=== PATIENT | male | born 1965 | race Caucasian/White ===

== ENCOUNTER 2017-05-03 18:21 | Emergency (ER) | payer OTHER ==
[~2017-05-03] VITALS: Ht 182.9 cm; Wt 104.5 kg
[2017-05-03] MEDS ORDERED: HYDR25TA PO (18:55)
[2017-05-03] MEDS ORDERED: LISI-660 PO (18:55)
[2017-05-03] MEDS: ACYCLOVIR 200 MG CAPSULE PO ONE (19:21)
[2017-05-03] MEDS: PredniSONE 20 MG TABLET PO ONE (19:21)
[2017-05-03] MEDS: LISINOPRIL 10 MG TABLET PO ONE (19:30)
[2017-05-03] MEDS: HYDROCHLOROTHIAZIDE 25 MG TABLET PO ONE (19:30)
[2017-05-03 19:35] VITALS: BP 180/88
== END 2017-05-03 19:46 | disposition home or self-care (01) ==
LOC: EMS 18:34
DX: G51.0 Bell's palsy (principal); I10 Essential (primary) hypertension
CPT/HCPCS: 99284; J7512

== ENCOUNTER 2017-07-29 20:57 | Inpatient (IN) | payer OTHER ==
[~2017-07-29] VITALS: Ht 182.9 cm; Wt 103.7 kg
[~2017-07-29 20:57] MED LIST: HYDR25TA PO; LISI-660 PO
[2017-07-29 21:40] LABS: BASOPHILS % (AUTO) 0.2 % (0.0-2.0); EOSINOPHILS % (AUTO) 0.8 % (1.0-6.0); HEMATOCRIT 48.6 % (41-53); HEMOGLOBIN 17.9 g/dL (13.5-17.5); LYMPHOCYTES # (AUTO) 2.7 K/uL (1.0-4.8); LYMPHOCYTES % (AUTO) 37.4 % (22.0-44.0); MEAN CORPUSCULAR HEMOGLOBIN 32.8 pg (26.0-34.0); MEAN CORPUSCULAR HGB CONC 36.8 G/dL (31.0-37.0); MEAN CORPUSCULAR VOLUME 89 fL (80-100); MONOCYTES # (AUTO) 0.5 K/uL (0.1-1.0); MONOCYTES % (AUTO) 7.5 % (2.0-9.0); NEUTROPHILS # (AUTO) 3.9 K/uL (1.8-7.7); NEUTROPHILS % (AUTO) 54.1 % (40.0-70.0); PLATELET COUNT (AUTO) 160 K/uL (150-450); RED BLOOD CELL COUNT(AUTO) 5.44 MIL/uL (4.50-5.90); RED CELL DISTRIBUTION WIDTH 12.8 % (11.5-14.5)
[2017-07-29 21:47] LABS: ALANINE AMINOTRANSFERASE 23 U/L (12-78); ALBUMIN 3.8 g/dL (3.4-5.0); ALKALINE PHOSPHATASE 55 U/L (46-116); ANION GAP 12 mmol/L (8-16); ASPARTATE AMINOTRANSFERASE 23 U/L (15-37); BILIRUBIN,TOTAL 0.7 mg/dL (0.1-1.0); CALCIUM, TOTAL 8.2 mg/dL (8.8-10.5); CARBON DIOXIDE 25 mmol/L (22-29); CHLORIDE 81 mmol/L (98-107); CREATININE 0.68 mg/dL (0.60-1.30); GLOMERULAR FILTR. RATE CALC > 60 mL/min (>60); GLUCOSE,RANDOM 148 mg/dL (70-110); POTASSIUM 3.4 mmol/L (3.5-5.1); UREA NITROGEN, BLOOD 7 mg/dL (7-18)
[2017-07-29 21:49] LABS: SODIUM SERUM 118 mmol/L (136-145)
[2017-07-29] MEDS ORDERED: SODIUM CHLORIDE 0.9% 1,000 ML IV SCH (22:30)
[2017-07-29] MEDS ORDERED: POTASSIUM CHL 10 MEQ/WATER 50 ML IV PRN (22:30)
[2017-07-29] MEDS ORDERED: ONDANSETRON HCL 4 MG/2 ML VIAL IVP PRN (22:30)
[2017-07-29] MEDS ORDERED: LORazepam 2 MG/ML VIAL IVP PRN (22:30)
[2017-07-29] MEDS ORDERED: MAGNESIUM HYDROXIDE SUSPENSION 30 ML UDCUP PO PRN (22:30)
[2017-07-29] MEDS ORDERED: MAGNESIUM SULFATE 2 GM in DEXTROSE 5%-WATER 50 ML IV PRN (22:30)
[2017-07-29] MEDS ORDERED: POTASSIUM CHLORIDE 20 MEQ ER TABLET PO PRN (22:30)
[2017-07-29] MEDS ORDERED: MAGNESIUM SULFATE 4 GM/WATER 100 ML IV PRN (22:30)
[2017-07-29] MEDS ORDERED: ACETAMINOPHEN 325 MG TABLET PO PRN (22:30)
[2017-07-29] MEDS ORDERED: MAGNESIUM OXIDE 400 MG TABLET PO PRN (22:30)
[2017-07-30 01:45] VITALS: BP 148/87
[2017-07-30 02:00] VITALS: BP 148/87
[2017-07-30] MEDS ORDERED: AmLODIPine BESYLATE 5 MG TABLET PO ONE (02:00)
[2017-07-30 05:09] VITALS: BP 147/77
[2017-07-30 07:21] LABS: ANION GAP 12 mmol/L (8-16); CARBON DIOXIDE 24 mmol/L (22-29); CHLORIDE 84 mmol/L (98-107); GLOMERULAR FILTR. RATE CALC > 60 mL/min (>60); GLUCOSE,RANDOM 112 mg/dL (70-110); POTASSIUM 3.9 mmol/L (3.5-5.1); UREA NITROGEN, BLOOD 7 mg/dL (7-18)
[2017-07-30 07:27] VITALS: BP 147/85
[2017-07-30 07:30] LABS: SODIUM SERUM 120 mmol/L (136-145)
[2017-07-30] MEDS ORDERED: PANTOPRAZOLE SODIUM 40 MG DR TABLET PO SCH (09:00)
== END 2017-07-30 11:50 | disposition left against medical advice (07) | DRG 425 ==
LOC: EMS 20:57 → 5S 22:28 → 5N 07-30 00:07 → 5S 07-30 00:54
PROVIDERS: ADMIT Internal Medicine; ATTEND Internal Medicine
DX: E87.1 Hypo-osmolality and hyponatremia (principal); S09.90XA Unspecified injury of head, initial encounter; I67.2 Cerebral atherosclerosis; I10 Essential (primary) hypertension; F10.129 Alcohol abuse with intoxication, unspecified; M48.00 Spinal stenosis, site unspecified; W18.30XA Fall on same level, unspecified, initial encounter; Z53.21 Procedure and treatment not carried out due to patient leaving prior to being seen by health care provider; Y90.8 Blood alcohol level of 240 mg/100 ml or more; Y93.01 Activity, walking, marching and hiking; Z79.899 Other long term (current) drug therapy
CPT/HCPCS: 70450; 72125; 83735; 99285; G0480; J3475; J7030; J7060